=== PATIENT | female | born 1955 | race Caucasian/White ===

== ENCOUNTER 2016-08-11 12:57 | Emergency (ER) | payer MEDICARE ==
[2016-08-11 13:09] VITALS: BP 152/81; PULSE 114; RESP 18; TEMP 98.2
--- NOTE | 2016-08-11 13:30 | ED ---
ENT HPI - General Chief complaint: Dental/Oral Stated complaint: Dental Pain Time Seen by Provider: 08/11/16 13:15 Source: patient, RN notes reviewed, old records reviewed Mode of arrival: ambulatory Limitations: no limitations - History of Present Illness Initial comments: Is a 61-year-old female presenting to the ED chief complaint of dental pain. Patient reports that she is trying to get her teeth pulled and states that she needs to be started on some antibiotics. Patient states that she has pain over tooth 24 and 23, tooth #29 and 14. Patient has very poor dentition and multiple dental caries. Patient denies any fever or chills. She also states that she is a heavy smoker and ran out of her inhaler medication. She states that she ran out of her rescue inhaler as well as her preventable medication. Patient denies any fever or chills, difficulty opening or closing the mouth. She denies any significant coughing is worse than usual. Patient states that she has poor dentition because she was on multiple anxiety medicines which cause her to have a dry mouth for many years.Patient denies any recent fever, chills, shortness of breath, chest pain, back pain, abdominal pain, nausea vomiting, numbness or tingling, dysuria or hematuria, constipation or diarrhea, headaches or visual changes, or any other current symptoms - Related Data Previous Rx's Medication Instructions Recorded Albuterol Sulfate [Ventolin HFA] 2 puff INHALATION Q4H PRN #1 06/29/13 inhaler Budesonide/Formoterol Fumarate 2 puff INHALATION BID #1 inhaler 06/29/13 [Symbicort 160-4.5 Mcg Inhaler] Ciprofloxacin HCl [Cipro] 500 mg PO Q12HR #14 tablet 06/29/13 Fluconazole [Diflucan] 150 mg PO ONCE #1 tab 06/29/13 Hydrocodone/Acetaminophen 1 each PO Q6H PRN 7 Days 06/29/13 [Hydrocodone/Acetaminophen 7.5-325] Nicotine 21Mg/24Hr Patch [Habitrol] 1 each TRANSDERM DAILY #30 patch 06/29/13 methylPREDNISolone [Medrol] 32 mg PO DAILY #7 tablet 06/29/13 Albuterol Inhaler [Ventolin Hfa 1 - 2 puff INHALATION Q6HR PRN #1 08/11/16 Inhaler] inhaler Budesonide/Formoterol Fumarate 2 puff INHALATION BID #1 inhaler 08/11/16 [Symbicort 160-4.5 Mcg Inhaler] HYDROcodone/APAP 7.5-325MG [Renick 1 tab PO Q6HR PRN #10 tab 08/11/16 7.5-325] Penicillin V Potassium [Pen Vee K] 500 mg PO QID #40 tab 08/11/16 Allergies Allergy/AdvReac Type Severity Reaction Status Date / Time codeine Allergy Itching Verified 08/11/16 13:09 erythromycin base Allergy Nausea & Verified 08/11/16 13:09 [Erythromycin Base] Vomiting morphine AdvReac Nausea Verified 08/11/16 13:09 Review of Systems ROS Statement: Those systems with pertinent positive or pertinent negative responses have been documented in the HPI. ROS Other: All systems not noted in ROS Statement are negative. Past Medical History Past Medical History: Asthma, COPD Additional Past Medical History / Comment(s): kidney stones, hep C History of Any Multi-Drug Resistant Organisms: None Reported Past Surgical History: Section, Cholecystectomy Additional Past Surgical History / Comment(s): Gallbladder. x 6. Kidney stone removed. 3 surgries to right arm, hardware in place Additional Past Anesthesia/Blood Transfusion Reaction / Comment(s): Trouble waking up after , did not wake up for 3 days Past Psychological History: Anxiety, Depression Smoking Status: Heavy tobacco smoker Past Alcohol Use History: None Reported Past Drug Use History: None Reported General Exam - General Exam Comments Initial Comments: 61-year-old female. No acute distress. Limitations: no limitations General appearance: alert, in no apparent distress Head exam: Present: atraumatic, normocephalic, normal inspection Eye exam: Present: normal appearance, PERRL, EOMI. Absent: scleral icterus, conjunctival injection, periorbital swelling ENT exam: Present: normal exam, mucous membranes moist Neck exam: Present: normal inspection. Absent: tenderness, meningismus, lymphadenopathy Respiratory exam: Present: normal lung sounds bilaterally, wheezes (Bilateral wheezing. Patient reports that she is a heavy smoker this is chronic.). Absent : respiratory distress, rales, rhonchi, stridor Cardiovascular Exam: Present: regular rate, normal rhythm, normal heart sounds. Absent: systolic murmur, diastolic murmur, rubs, gallop, clicks GI/Abdominal exam: Present: soft, normal bowel sounds. Absent: distended, tenderness, guarding, rebound, rigid Extremities exam: Present: normal inspection, full ROM, normal capillary refill. Absent: tenderness, pedal edema, joint swelling, calf tenderness Back exam: Present: normal inspection Neurological exam: Present: alert, oriented X3, CN II-XII intact Psychiatric exam: Present: normal affect, normal mood Skin exam: Present: warm, dry, intact, normal color. Absent: rash Course Vital Signs 08/11/16 13:05 Temperature 98.2 F Pulse Rate 114 H Respiratory 18 Rate Blood Pressure 152/81 O2 Sat by Pulse 96 Oximetry Medical Decision Making - Medical Decision Making Is a 61-year-old female presenting to the ED chief complaint of dental pain. Patient reports that she is trying to get her teeth pulled and states that she needs to be started on some antibiotics. Patient states that she has pain over tooth 24 and 23, tooth #29 and 14. Patient has very poor dentition and multiple dental caries. Patient denies any fever or chills. She also states that she is a heavy smoker and ran out of her inhaler medication. She states that she ran out of her rescue inhaler as well as her preventable medication. Patient denies any fever or chills, difficulty opening or closing the mouth. She denies any significant coughing is worse than usual. Patient has extremely poor dentition. Evidence of multiple dental caries and missing all of her molars. Patient has fractured tooth #29, multiple caries in between tooth #24 and 23 and fracture tooth #13 oh 14. Patient will be started on Pen-Vee K, given pain medication as well as refill of in her inhalers for her COPD. Discussed with the patient she needs to follow-up with a dentist and primary care 5. Return parameters were discussed. Disposition Clinical Impression: Pain, dental, COPD (chronic obstructive pulmonary disease) Disposition: HOME SELF-CARE Condition: Good Instructions: Toothache (ED), COPD (Chronic Obstructive Pulmonary Disease) (ED) Additional Instructions: Patient advised to follow-up with a primary care provider. Use your inhalers as directed. Also complete antibiotic prescription and use pain medication instructed. Return to the emergency department if any alarming signs or symptoms occur. Prescriptions: Albuterol Inhaler [Ventolin Hfa Inhaler] 1 - 2 puff INHALATION Q6HR PRN #1 inhaler PRN Reason: Shortness Of Breath Budesonide/Formoterol Fumarate [Symbicort 160-4.5 Mcg Inhaler] 2 puff INHALATION BID #1 inhaler HYDROcodone/APAP 7.5-325MG [Renick 7.5-325] 1 tab PO Q6HR PRN #10 tab PRN Reason: Pain Penicillin V Potassium [Pen Vee K] 500 mg PO QID #40 tab Referrals: Nonstaff,Physician [Primary Care Provider] - 1-2 days Dom Godfrey MD [STAFF PHYSICIAN] - 1-2 days Time of Disposition: 13:26
== END 2016-08-11 13:42 | disposition home or self-care (01) ==
LOC: EC 12:57
DX: K08.89 Other specified disorders of teeth and supporting structures (principal); J44.9 Chronic obstructive pulmonary disease, unspecified; F17.200 Nicotine dependence, unspecified, uncomplicated; Z88.5 Allergy status to narcotic agent; Z88.1 Allergy status to other antibiotic agents
CPT/HCPCS: 99283

== ENCOUNTER 2016-10-26 13:10 | Emergency (ER) | payer MEDICARE ==
[2016-10-26] MEDS ORDERED: KETOROLAC 30 MG/ML 1 ML VIAL IVP STA (15:13)
[2016-10-26] MEDS ORDERED: methylPREDNISolone SOD SUCCI 125 MG/2 ML VIAL IV STA (15:13)
[2016-10-26] MEDS ORDERED: ORPHENADRINE 30 MG/ML 2 ML VIAL IVP STA (15:14)
--- NOTE | 2016-10-26 15:28 | ED ---
Back Pain HPI - General Stated Complaint: lower back pain Time Seen by Provider: 10/26/16 14:15 Source: patient, RN notes reviewed - History of Present Illness Initial Comments: This is a 61-year-old female with a history of upper back pain in the past who states she jumped out of a car yesterday to avoid the bee sting and twisted when she got out. She did not fall but she's had low back pain since that time up to 09/23 in severity sharp in nature and radiating to the left upper gluteus. She denies any urinary or fecal incontinence. She denies any fevers chills sweats a loss of function to her upper or lower extremities. She does not have a known history of low back injury or disease. She denies any urinary or fecal incontinence. Patient does state that she did take Motrin and Tylenol without much relief. MD Complaint: back pain, back injury - Related Data Home Medications Medication Instructions Recorded Confirmed Acetaminophen Tab [Tylenol Tab] 1,000 mg PO Q6HR PRN 10/26/16 10/26/16 Albuterol Sulfate [Ventolin HFA] 2 puff INHALATION RT-Q4H PRN 10/26/16 10/26/16 [id number] 2 tab PO Q4HR PRN 10/26/16 10/26/16 [Excedrin] Budesonide/Formoterol Fumarate 2 puff INHALATION RT-BID 10/26/16 10/26/16 [Symbicort 160-4.5 Mcg Inhaler] Ibuprofen [Motrin] 800 mg PO Q6H PRN 10/26/16 10/26/16 Previous Rx's Medication Instructions Recorded Cyclobenzaprine [Flexeril] 10 mg PO TID #14 tab 10/26/16 Hydrocodone/Acetaminophen [[place]berry 1 each PO Q6HR PRN #12 tab 10/26/16 5-325] predniSONE 20 mg PO BID #10 tab 10/26/16 Allergies Allergy/AdvReac Type Severity Reaction Status Date / Time codeine Allergy Itching Verified 10/26/16 14:18 erythromycin base Allergy Nausea & Verified 10/26/16 14:18 [Erythromycin Base] Vomiting morphine AdvReac Nausea Verified 10/26/16 14:18 Review of Systems ROS Statement: Those systems with pertinent positive or pertinent negative responses have been documented in the HPI. ROS Other: All systems not noted in ROS Statement are negative. Past Medical History Past Medical History: Asthma, COPD Additional Past Medical History / Comment(s): kidney stones, hep C History of Any Multi-Drug Resistant Organisms: None Reported Past Surgical History: Section, Cholecystectomy Additional Past Surgical History / Comment(s): Gallbladder. x 6. Kidney stone removed. 3 surgries to right arm, hardware in place Additional Past Anesthesia/Blood Transfusion Reaction / Comment(s): Trouble waking up after , did not wake up for 3 days Past Psychological History: Anxiety, Depression Smoking Status: Heavy tobacco smoker Past Alcohol Use History: None Reported Past Drug Use History: None Reported General Exam - General Exam Comments Initial Comments: This is a well-developed well-nourished awake alert oriented 3 female Limitations: no limitations General appearance: alert, anxious, in distress Head exam: Present: atraumatic, normocephalic, normal inspection Eye exam: Present: normal appearance, PERRL, EOMI. Absent: scleral icterus, conjunctival injection, periorbital swelling ENT exam: Present: normal exam, mucous membranes moist Neck exam: Present: normal inspection. Absent: tenderness, meningismus, lymphadenopathy Respiratory exam: Present: normal lung sounds bilaterally. Absent: respiratory distress, wheezes, rales, rhonchi, stridor Cardiovascular Exam: Present: regular rate, normal rhythm, normal heart sounds. Absent: systolic murmur, diastolic murmur, rubs, gallop, clicks GI/Abdominal exam: Present: soft, normal bowel sounds. Absent: distended, tenderness, guarding, rebound, rigid, bruit, pulsatile mass Extremities exam: Present: normal inspection, full ROM, normal capillary refill. Absent: tenderness, pedal edema, joint swelling, calf tenderness Back exam: Present: normal inspection, tenderness (Tenderness palpation of the left SI joint and over the gluteus muscle on the left over the sciatic outlet. Some mild paraspinous tenderness in the left no right SI joint tenderness. No step-off no crepitation no midline tenderness.) Neurological exam: Present: alert, oriented X3, CN II-XII intact Psychiatric exam: Present: normal affect, normal mood Skin exam: Present: warm, dry, intact, normal color. Absent: rash Medical Decision Making - Medical Decision Making I did discuss findings with the patient patient is feeling somewhat improved she will be discharged on appropriate medication the clinical presentation is consistent with sciatica. - Radiology Data Radiology results: report reviewed (I did review the imaging or some degenerative changes noted no acute findings however.), image reviewed Disposition Clinical Impression: Sciatica of left side, Low back pain Disposition: HOME SELF-CARE Condition: Good Instructions: Sciatica (ED), Lower Back Exercises (ED) Prescriptions: Cyclobenzaprine [Flexeril] 10 mg PO TID #14 tab Hydrocodone/Acetaminophen [Newberry 5-325] 1 each PO Q6HR PRN #12 tab PRN Reason: Pain predniSONE 20 mg PO BID #10 tab Referrals: Tony Schmidt MD [Primary Care Provider] - 1-2 days
--- NOTE | 2016-10-26 15:53 | XR ---
EXAM TYPE: LUMBAR SPINE X RAY SERIES COMPARISON: NONE HISTORY: Back pain TECHNIQUE: 4 views are submitted. FINDINGS: Alignment is anatomic. The pedicles are intact. The transverse processes are intact. Surgical clip s in the right upper quadrant. There is facet arthropathy at L4-5 and L5-S1 with degenerative disc di sease. No compression deformities. Vascular calcifications noted. There is a slight anterolisthesis o f L4 on L5. IMPRESSION: 1. Degenerative disc disease facet arthropathy L4-L5 with minimal anterolisthesis L4 on L5.
[2016-10-26 17:18] VITALS: BP 148/67; PULSE 80; RESP 18; TEMP 98.4
== END 2016-10-26 17:21 | disposition home or self-care (01) ==
LOC: EC 13:10
DX: M54.42 Lumbago with sciatica, left side (principal); J44.9 Chronic obstructive pulmonary disease, unspecified; F17.200 Nicotine dependence, unspecified, uncomplicated; Z79.51 Long term (current) use of inhaled steroids; Z88.1 Allergy status to other antibiotic agents; Z88.5 Allergy status to narcotic agent; X50.1XXA Overexertion from prolonged static or awkward postures, initial encounter; Y93.39 Activity, other involving climbing, rappelling and jumping off
CPT/HCPCS: 72110; 99283; 96374; 96375 ×2; J2360; J2930; J1885

== ENCOUNTER 2016-11-17 14:22 | Emergency (ER) | payer MEDICARE ==
[2016-11-17] MEDS ORDERED: ALBUTEROL NEBULIZED 2.5 MG/3 ML INHALATION STA (14:46)
[2016-11-17] MEDS ORDERED: SODIUM CHLORIDE 0.9% 500 ML IV STA (14:46)
[2016-11-17] MEDS ORDERED: methylPREDNISolone SOD SUCCI 125 MG/2 ML VIAL IV STA (14:46)
[2016-11-17] MEDS ORDERED: IPRATROPIUM-ALBUTEROL 3 ML NEB INHALATION STA (14:46)
--- NOTE | 2016-11-17 14:58 | ED ---
General Adult HPI - General Chief complaint: Recheck/Abnormal Lab/Rx Stated complaint: Congestion Time Seen by Provider: 11/17/16 14:31 Source: patient Mode of arrival: ambulatory Limitations: no limitations - History of Present Illness Initial comments: Patient is a 61-year-old female who presents with a chief complaint of shortness of breath. Patient states she been sick since November 07. The patient has not been evaluated by a physician yet for this. Patient states that she is feeling somewhat better however she is still short of breath. She thinks that it is her asthma. The patient continues to smoke, she lives in a house with other smokers to smoke inside, there also pets inside the house. Patient cannot think of any inciting incident, she does not identify any sick contacts. Patient states the fumes or aggravating, and that her shortness of breath is worse when lying down. There are no alleviating factors, the patient admits that she ran out of her inhalers. Patient denies any chest pain. - Related Data Home Medications Medication Instructions Recorded Confirmed Acetaminophen Tab [Tylenol Tab] 1,000 mg PO Q6HR PRN 10/26/16 11/17/16 Albuterol Sulfate [Ventolin HFA] 2 puff INHALATION RT-Q4H PRN 10/26/16 11/17/16 Budesonide/Formoterol Fumarate 2 puff INHALATION RT-BID 10/26/16 11/17/16 [Symbicort 160-4.5 Mcg Inhaler] Aspirin/Sod Bicarb/Citric Acid 2 tab PO DAILY PRN 11/17/16 11/17/16 [Amy-[place] Original Tab Eff] Previous Rx's Medication Instructions Recorded Albuterol Inhaler [Ventolin Hfa 1 - 2 puff INHALATION Q4HR #1 11/17/16 Inhaler] inhaler Albuterol Nebulized [Ventolin 2.5 mg INHALATION Q4H #20 nebu 11/17/16 Nebulized] Azithromycin 250 mg PO DAILY #6 tab 11/17/16 Ipratropium [place] [Atrovent Hfa] 2 puff INHALATION QID #1 inhaler 11/17/16 predniSONE 50 mg PO DAILY #5 tablet 11/17/16 Allergies Allergy/AdvReac Type Severity Reaction Status Date / Time codeine Allergy Itching Verified 11/17/16 14:27 erythromycin base Allergy Nausea & Verified 11/17/16 14:27 [Erythromycin Base] Vomiting morphine AdvReac Nausea Verified 11/17/16 14:27 Review of Systems ROS Statement: Those systems with pertinent positive or pertinent negative responses have been documented in the HPI. ROS Other: All systems not noted in ROS Statement are negative. Constitutional: Denies: fever, chills Eyes: Denies: vision change ENT: Denies: throat pain Respiratory: Reports: cough, dyspnea Cardiovascular: Reports: orthopnea. Denies: chest pain, dyspnea on exertion Endocrine: Reports: fatigue Gastrointestinal: Denies: abdominal pain, nausea, vomiting Genitourinary: Denies: dysuria Musculoskeletal: Denies: back pain Skin: Denies: rash, lesions Neurological: Denies: headache Past Medical History Past Medical History: Asthma, COPD Additional Past Medical History / Comment(s): kidney stones, hep C History of Any Multi-Drug Resistant Organisms: None Reported Past Surgical History: Section, Cholecystectomy Additional Past Surgical History / Comment(s): Gallbladder. x 6. Kidney stone removed. 3 surgries to right arm, hardware in place Additional Past Anesthesia/Blood Transfusion Reaction / Comment(s): Trouble waking up after , did not wake up for 3 days Past Psychological History: Anxiety, Depression Smoking Status: Current every day smoker Past Alcohol Use History: None Reported Past Drug Use History: None Reported General Exam Limitations: no limitations General appearance: alert, in no apparent distress Head exam: Present: atraumatic, normocephalic Eye exam: Present: normal appearance ENT exam: Present: normal exam Respiratory exam: Present: wheezes, prolonged expiratory Cardiovascular Exam: Present: regular rate, normal rhythm, normal heart sounds GI/Abdominal exam: Present: soft. Absent: distended, tenderness Rectal exam: Present: deferred Extremities exam: Present: normal inspection Back exam: Present: normal inspection Neurological exam: Present: alert, oriented X3, CN II-XII intact, normal gait Psychiatric exam: Present: normal affect, normal mood Skin exam: Present: warm, dry, intact Course Vital Signs 11/17/16 11/17/16 11/17/16 14:25 15:19 15:29 Temperature 97.5 F L Pulse Rate 102 H 102 H 98 Respiratory 20 22 Rate Blood Pressure 187/97 175/61 O2 Sat by Pulse 97 96 Oximetry 11/17/16 11/17/16 15:54 16:13 Temperature Pulse Rate 96 94 Respiratory 18 Rate Blood Pressure 159/75 O2 Sat by Pulse 94 L Oximetry Medical Decision Making - Medical Decision Making Patient is a 61-year-old female with history of asthma and COPD who presents with a chief complaint of shortness of breath. On initial evaluation, the patient is mildly tachycardic, otherwise stable. She will have a basic cardiac workup. Patient was given Solu-Medrol, breathing treatments. At this time, history and physical examination is most consistent with upper respiratory infection versus asthma exacerbation. I discussed triggers the patient and advised that she find a better living situation. EKG performed at 2:53 PM shows sinus tachycardia with a rate of 104 bpm. EKG is otherwise nonspecific. There does not appear to be any ST segment elevations or depressions. The segments appear to be within normal limits. 5:00 PM Lab evaluation this patient is unremarkable. Chest x-ray shows evidence of bronchitis. Patient was reexamined after breathing treatments, her vital signs are improved, and she states that she feels better. Reexamination of the lungs shows improved wheezing, air entry, and air exit. At this time, I discussed discharge with the patient, she is agreeable to this care plan. I'll prescribe her albuterol inhaler, Atrovent, steroids, and a Z-Ankit. It would be ideal for this patient to have a nebulizer machine at home, I will write a prescription for a nebulizer, and provide the patient with the phone number for social work to facilitate. At this time, all questions are answered as best my ability, the patient is instructed to follow up with primary care, or to return to the emergency department if her symptoms worsen or change. - Lab Data Result diagrams: 11/17/16 15:08 11/17/16 15:08 Lab Results 11/17/16 11/17/16 11/17/16 Range/Units 15:08 15:08 15:08 WBC 8.9 (3.8-10.6) k/uL RBC 4.34 (3.80-5.40) m/uL Hgb 14.3 (11.4-16.0) gm/dL Hct 42.9 (34.0-46.0) % MCV 98.9 (80.0-100.0) fL MCH 32.9 (25.0-35.0) pg MCHC 33.2 (31.0-37.0) g/dL RDW 13.6 (11.5-15.5) % Plt Count 356 (150-450) k/uL Neutrophils % 45 % Lymphocytes % 42 % Monocytes % 9 % Eosinophils % 2 % Basophils % 1 % Neutrophils # 4.0 (1.3-7.7) k/uL Lymphocytes # 3.7 (1.0-4.8) k/uL Monocytes # 0.8 (0-1.0) k/uL Eosinophils # 0.2 (0-0.7) k/uL Basophils # 0.1 (0-0.2) k/uL PT (9.0-12.0) sec INR (<1.2) APTT (22.0-30.0) sec Sodium 141 (137-145) mmol/L Potassium 4.5 (3.5-5.1) mmol/L Chloride 104 (98-107) mmol/L Carbon Dioxide 26 (22-30) mmol/L Anion Gap 11 mmol/L BUN 25 H (7-17) mg/dL Creatinine 0.72 (0.52-1.04) mg/dL Est GFR (MDRD) Af Amer >60 (>60 ml/min/1.73 sqM) Est GFR (MDRD) Non-Af >60 (>60 ml/min/1.73 sqM) Glucose 119 H (74-99) mg/dL Calcium 9.9 (8.4-10.2) mg/dL Magnesium 2.1 (1.6-2.3) mg/dL Total Creatine Kinase 86 (30-135) U/L CK-MB (CK-2) 0.8 (0.0-2.4) ng/mL CK-MB (CK-2) Rel Index 0.9 Troponin I <0.012 (0.000-0.034) ng/mL NT-Pro-B Natriuret Pep pg/mL 11/17/16 11/17/16 Range/Units 15:08 15:08 WBC (3.8-10.6) k/uL RBC (3.80-5.40) m/uL Hgb (11.4-16.0) gm/dL Hct (34.0-46.0) % MCV (80.0-100.0) fL MCH (25.0-35.0) pg MCHC (31.0-37.0) g/dL RDW (11.5-15.5) % Plt Count (150-450) k/uL Neutrophils % % Lymphocytes % % Monocytes % % Eosinophils % % Basophils % % Neutrophils # (1.3-7.7) k/uL Lymphocytes # (1.0-4.8) k/uL Monocytes # (0-1.0) k/uL Eosinophils # (0-0.7) k/uL Basophils # (0-0.2) k/uL PT 10.1 (9.0-12.0) sec INR 1.0 (<1.2) APTT 21.5 L (22.0-30.0) sec Sodium (137-145) mmol/L Potassium (3.5-5.1) mmol/L Chloride (98-107) mmol/L Carbon Dioxide (22-30) mmol/L Anion Gap mmol/L BUN (7-17) mg/dL Creatinine (0.52-1.04) mg/dL Est GFR (MDRD) Af Amer (>60 ml/min/1.73 sqM) Est GFR (MDRD) Non-Af (>60 ml/min/1.73 sqM) Glucose (74-99) mg/dL Calcium (8.4-10.2) mg/dL Magnesium (1.6-2.3) mg/dL Total Creatine Kinase (30-135) U/L CK-MB (CK-2) (0.0-2.4) ng/mL CK-MB (CK-2) Rel Index Troponin I (0.000-0.034) ng/mL NT-Pro-B Natriuret Pep 50 pg/mL Disposition Clinical Impression: Asthma exacerbation, Bronchitis, Encounter for smoking cessation counseling, Encounter for removal of sutures, Shortness of breath Disposition: HOME SELF-CARE Condition: Good Instructions: Acute Bronchitis (ED), COPD (Chronic Obstructive Pulmonary Disease) (ED), How to Use a Nebulizer (ED) Referrals: Nonstaff,Physician [REFERRING] - 1-2 days
[2016-11-17 15:35] LABS: Anion Gap 11 mmol/L; Blood Urea Nitrogen 25 mg/dL (7-17); Calcium 9.9 mg/dL (8.4-10.2); Carbon Dioxide 26 mmol/L (22-30); Chloride 104 mmol/L (98-107); Glucose 119 mg/dL (74-99); Magnesium 2.1 mg/dL (1.6-2.3); Non-African American GFR(MDRD) >60 (>60 ml/min/1.73 sqM); Potassium 4.5 mmol/L (3.5-5.1); Sodium 141 mmol/L (137-145)
[2016-11-17 15:41] LABS: Partial Thromboplastin Time 21.5 sec (22.0-30.0); Prothrombin Time 10.1 sec (9.0-12.0)
[2016-11-17 15:47] LABS: Basophils # (A) 0.1 k/uL (0-0.2); Basophils % (A) 1 %; CH 33.1; CHCM 33.7; Creatine Kinase 86 U/L (30-135); Eosinophils # (A) 0.2 k/uL (0-0.7); Eosinophils % (A) 2 %; HCT 42.9 % (34.0-46.0); HDW 2.49; HGB 14.3 gm/dL (11.4-16.0); Luc # (Auto) 0.17; Luc % (Auto) 2; Lymphocytes # (A) 3.7 k/uL (1.0-4.8); Lymphocytes % (A) 42 %; MCH 32.9 pg (25.0-35.0); MCHC 33.2 g/dL (31.0-37.0); MCV 98.9 fL (80.0-100.0); Mean Platelet Volume 8.5; Monocytes # (A) 0.8 k/uL (0-1.0); Monocytes % (A) 9 %; Neutrophils % (A) 45 %; RBC 4.34 m/uL (3.80-5.40); RDW 13.6 % (11.5-15.5); WBC 8.9 k/uL (3.8-10.6); WBC (Perox) 9.09
[2016-11-17 16:01] LABS: Creatine Kinase MB 0.8 ng/mL (0.0-2.4); Troponin I <0.012 ng/mL (0.000-0.034)
--- NOTE | 2016-11-17 16:21 | XR ---
EXAMINATION TYPE: XR chest 2V DATE OF EXAM: 11/17/2016 COMPARISON: 06/27/2013 HISTORY: 61-year-old female difficulty breathing TECHNIQUE: PA and lateral views FINDINGS: The cardiomediastinal silhouette, aorta, and pulmonary vasculature are within normal limits. Mild per ibronchial cuffing. Otherwise, lungs and pleural spaces are clear. IMPRESSION: Some peribronchial cuffing could represent bronchitis or chronic asthma. Otherwise, no acute process seen.
[2016-11-17 17:49] VITALS: BP 169/81; PULSE 96; RESP 18; TEMP 98
== END 2016-11-17 17:49 | disposition home or self-care (01) ==
LOC: EC 14:22
DX: J45.901 Unspecified asthma with (acute) exacerbation (principal); F17.200 Nicotine dependence, unspecified, uncomplicated; Z48.02 Encounter for removal of sutures; Z79.51 Long term (current) use of inhaled steroids; Z88.1 Allergy status to other antibiotic agents; Z88.5 Allergy status to narcotic agent
CPT/HCPCS: 99284 ×2; 96374 ×2; 96361 ×3; 36415; 94640; 93005; 83880; 80048; 82550; 82553; 83735; 84484; 85025; 85610; 85730; 71020; J2930

== ENCOUNTER 2017-07-25 18:35 | Emergency (ER) | payer MEDICARE, OTHER ==
[2017-07-25] MEDS ORDERED: methylPREDNISolone SOD SUCCI 125 MG/2 ML VIAL IM STA (19:02)
[2017-07-25] MEDS ORDERED: IPRATROPIUM-ALBUTEROL 3 ML NEB INHALATION STA (19:02)
--- NOTE | 2017-07-25 19:05 | ED ---
General Adult HPI - General Chief complaint: Upper Respiratory Infection Stated complaint: Diff Breathing, Tooth Ache Time Seen by Provider: 07/25/17 18:59 Source: patient, RN notes reviewed Mode of arrival: ambulatory Limitations: no limitations - History of Present Illness Initial comments: Patient 62-year-old female presents to the emergency room today with multiple points per patient does admit to a history of COPD and has had some cough congestion over the last few days and if any increasing. She states she is currently out of her inhaler. She states she had a prescription for nebulizer but lost it. Patient states that she's also had some dental pain she's had a fracture to the tooth #8 that has begun to bother her more recently. She states sternal fracture. She states she has been following up with dentist. Denies any drainage or unusual taste. Patient denies any recent fever, chills, chest pain, back pain, abdominal pain, nausea or vomiting, numbness or tingling , dysuria or hematuria, constipation or diarrhea, headaches or visual changes, or any other complaints. - Related Data Home Medications Medication Instructions Recorded Confirmed Acetaminophen Tab [Tylenol Tab] 1,000 mg PO Q6HR PRN 07/25/17 07/25/17 Albuterol Sulfate [Proair Hfa] 2 puff INHALATION RT-Q6H PRN 07/25/17 07/25/17 Previous Rx's Medication Instructions Recorded Albuterol Inhaler [Ventolin Hfa 1 - 2 puff INHALATION Q4-6H PRN #1 07/25/17 Inhaler] inhaler Albuterol Nebulized [Ventolin 2.5 mg INHALATION Q4H PRN 10 Days 07/25/17 Nebulized] nebu predniSONE 60 mg PO DAILY 5 Days tab 07/25/17 Allergies Allergy/AdvReac Type Severity Reaction Status Date / Time codeine Allergy Itching Verified 07/25/17 19:17 erythromycin base Allergy Nausea & Verified 07/25/17 19:17 [Erythromycin Base] Vomiting morphine AdvReac Nausea Verified 07/25/17 19:17 Review of Systems ROS Statement: Those systems with pertinent positive or pertinent negative responses have been documented in the HPI. ROS Other: All systems not noted in ROS Statement are negative. Past Medical History Past Medical History: Asthma, COPD Additional Past Medical History / Comment(s): kidney stones, hep C History of Any Multi-Drug Resistant Organisms: None Reported Past Surgical History: Section, Cholecystectomy, Orthopedic Surgery Additional Past Surgical History / Comment(s): Gallbladder. x 6. Kidney stone removed. 3 surgries to right arm, hardware in place Additional Past Anesthesia/Blood Transfusion Reaction / Comment(s): Trouble waking up after , did not wake up for 3 days Past Psychological History: Anxiety, Depression Smoking Status: Current every day smoker Past Alcohol Use History: None Reported Past Drug Use History: None Reported General Exam - General Exam Comments Initial Comments: General: The patient is awake and alert, in no distress, and does not appear acutely ill. Eye: Pupils are equal, round and reactive to light, extra-ocular movements are intact. No nystagmus. There is normal conjunctiva bilaterally. No signs of icterus. Ears, nose, mouth and throat: There are moist mucous membranes and no oral lesions. Neck: The neck is supple, there is no tenderness or JVD. Cardiovascular: There is a regular rate and rhythm. No murmur, rub or gallop is appreciated. Respiratory: Decreased lung sounds bilaterally with expiratory wheeze. respirations are non-labored, breath sounds are equal. No stridor, rales, or rhonchi. Musculoskeletal: Normal ROM, no tenderness. Strength 5/5. Sensation intact. Pulses equal bilaterally 2+. Neurological: A&O x 3. CN II-XII intact, There are no obvious motor or sensory deficits. Coordination appears grossly intact. Speech is normal. Skin: Skin is warm and dry and no rashes or lesions are noted. Psychiatric: Cooperative, appropriate mood & affect, normal judgment. Limitations: no limitations Course Vital Signs 07/25/17 07/25/17 07/25/17 18:42 19:25 19:35 Temperature 98.2 F Pulse Rate 100 102 H 96 Respiratory 18 Rate Blood Pressure 163/83 O2 Sat by Pulse 95 Oximetry Medical Decision Making - Medical Decision Making Patient rechecked at this time shows no signs of distress. She does much feeling much better after breathing treatment. Pulse ox 97% on room air. Lung sounds are clear at this time. Patient will be discharged home on steroids, given a prescription for albuterol inhaler that she is currently out of. Patient will also be written a prescription for nebulizer treatments. Advised to follow-up family doctor return if any symptoms increase or worsen. Disposition Clinical Impression: Asthma exacerbation, Pain, dental Disposition: HOME SELF-CARE Condition: Good Instructions: Bronchospasm (ED) Additional Instructions: Please use medication as discussed. Please follow-up dentist for dental pain over the next week. Please follow-up with family doctor in the next 2 days of symptoms have not improved. Please return to emergency room if the symptoms increase or worsen or for any other concerns. Prescriptions: Albuterol Inhaler [Ventolin Hfa Inhaler] 1 - 2 puff INHALATION Q4-6H PRN #1 inhaler PRN Reason: Cough Albuterol Nebulized [Ventolin Nebulized] 2.5 mg INHALATION Q4H PRN 10 Days nebu PRN Reason: Cough predniSONE 60 mg PO DAILY 5 Days tab Is patient prescribed a controlled substance at d/c from ED?: No Referrals: None,Stated [Primary Care Provider] - 1-2 days Antonio Stuart DO [STAFF PHYSICIAN] - 1-2 days Sandra Barker MD [REFERRING] - 1-2 days Time of Disposition: 19:43
--- NOTE | 2017-07-25 19:24 | XR ---
EXAMINATION TYPE: XR chest 2V DATE OF EXAM: 07/25/2017 COMPARISON: 11/17/2016 HISTORY: Cough TECHNIQUE: Frontal and lateral views of the chest are obtained. FINDINGS: Heart and mediastinum are normal. Lungs are clear. Diaphragm is normal. Bony thorax appear s normal. IMPRESSION: Normal chest. No change.
[2017-07-25 19:49] VITALS: BP 133/77; PULSE 87; TEMP 97.9
[2017-07-25 19:50] VITALS: RESP 24
== END 2017-07-25 19:50 | disposition home or self-care (01) ==
LOC: EC 18:35
DX: J44.9 Chronic obstructive pulmonary disease, unspecified (principal); J45.901 Unspecified asthma with (acute) exacerbation; S02.5XXA Fracture of tooth (traumatic), initial encounter for closed fracture; F17.200 Nicotine dependence, unspecified, uncomplicated; Z88.1 Allergy status to other antibiotic agents; Z88.5 Allergy status to narcotic agent; X58.XXXA Exposure to other specified factors, initial encounter
CPT/HCPCS: 94640; 71046; 99283; 96372; J2930

== ENCOUNTER → 2017-12-02 | Outpatient (CLI) | payer MEDICARE ==
[2017-12-02 10:51] LABS: Appearance,Urine Clear (Clear); Bilirubin,Urine Negative (Negative); Blood,Urine Small (Negative); Color,Urine Colorless; Glucose,Urine (UA) Negative (Negative); Ketones,Urine Negative (Negative); Leukocyte Esterase,Urine Negative (Negative); Mucus,Urine Rare /hpf; Nitrite,Urine Negative (Negative); Protein,Urine Negative (Negative); RBC,Urine 1 /hpf (0-5); Specific Gravity,Urine 1.005 (1.001-1.035); Urobilinogen,Urine <2.0 mg/dL (<2.0)
[2017-12-02 10:57] LABS: Basophils % (A) 0 %; Eosinophils # (A) 0.3 k/uL (0-0.7); Eosinophils % (A) 4 %; HCT 42.2 % (34.0-46.0); HGB 13.6 gm/dL (11.4-16.0); Lymphocytes # (A) 2.9 k/uL (1.0-4.8); Lymphocytes % (A) 47 %; MCH 31.3 pg (25.0-35.0); MCHC 32.1 g/dL (31.0-37.0); MCV 97.4 fL (80.0-100.0); Mean Platelet Volume 6.6; Monocytes # (A) 0.5 k/uL (0-1.0); Monocytes % (A) 8 %; Neutrophils # (A) 2.3 k/uL (1.3-7.7); Neutrophils % (A) 38 %; Platelet Count 292 k/uL (150-450); RBC 4.33 m/uL (3.80-5.40); RDW 13.2 % (11.5-15.5); WBC 6.1 k/uL (3.8-10.6)
[2017-12-02 11:00] LABS: ALT 39 U/L (9-52); AST 23 U/L (14-36); Albumin 4.3 g/dL (3.5-5.0); Alkaline Phosphatase 69 U/L (38-126); Anion Gap 7 mmol/L; Blood Urea Nitrogen 18 mg/dL (7-17); Calcium 9.9 mg/dL (8.4-10.2); Carbon Dioxide 28 mmol/L (22-30); Chloride 106 mmol/L (98-107); Glucose 103 mg/dL (74-99); HDL Cholesterol 43 mg/dL (40-60); Potassium 5.4 mmol/L (3.5-5.1); Sodium 141 mmol/L (137-145); Total Bilirubin 0.3 mg/dL (0.2-1.3); Total Protein 7.3 g/dL (6.3-8.2)
[2017-12-02 11:08] LABS: Cholesterol 333 mg/dL (<200)
[2017-12-02 11:09] LABS: Triglycerides 637 mg/dL (<150)
[2017-12-02 11:15] LABS: T4, Free (Free Thyroxine) 0.77 ng/dL (0.78-2.19)
[2017-12-02 19:14] LABS: Hemoglobin A1C 5.8 % (4.0-6.0)
== END ==
LOC: LABWHC1 09:54
PROVIDERS: ATTEND Family Medicine
DX: R03.0 Elevated blood-pressure reading, without diagnosis of hypertension (principal)
CPT/HCPCS: 36415; 80053; 80061; 81001; 83036; 84439; 84443; 85025

== ENCOUNTER 2017-12-26 17:30 | Emergency (ER) | payer MEDICARE ==
[2017-12-26 17:47] VITALS: RESP 18
[2017-12-26] MEDS ORDERED: traMADol 50 MG STARTER PACK 3 TAB BTL PO STA (18:05)
[2017-12-26] MEDS ORDERED: HYDROcodone/APAP 7.5-325MG 1 EACH TAB PO ONE (18:05)
[2017-12-26] MEDS ORDERED: PENICILLIN VK 500MG STARTER 4 TAB BTL PO STA (18:05)
--- NOTE | 2017-12-26 18:07 | ED ---
ENT HPI - General Chief complaint: Dental/Oral Stated complaint: dental pain Time Seen by Provider: 12/26/17 18:01 Source: patient, RN notes reviewed Mode of arrival: ambulatory Limitations: no limitations - History of Present Illness Initial comments: 62-year-old female sent emergency Department chief complaint of lower dental pain. Patient states pain started last couple days. She has very poor dentition. Patient states she has been getting tooth pulled one by one as she gets enough money. Patient states that she has multiple dental caries and dental fractures. Patient states that she's concerned about possible infection. Patient has been taking ibuprofen for the pain which is minimally house. Denies any trismus, facial swelling, fever, chills, neck pain, neck stiffness. - Related Data Home Medications Medication Instructions Recorded Confirmed Albuterol Sulfate [Proair Hfa] 2 puff INHALATION RT-Q6H PRN 07/25/17 07/25/17 Ibuprofen [Motrin] 800 mg PO Q8H PRN 12/26/17 12/26/17 Previous Rx's Medication Instructions Recorded Penicillin V Potassium [Pen Vee K] 500 mg PO QID #40 tablet 12/26/17 Allergies Allergy/AdvReac Type Severity Reaction Status Date / Time codeine Allergy Itching Verified 12/26/17 18:06 erythromycin base Allergy Nausea & Verified 12/26/17 18:06 [Erythromycin Base] Vomiting morphine AdvReac Nausea Verified 12/26/17 18:06 Review of Systems ROS Statement: Those systems with pertinent positive or pertinent negative responses have been documented in the HPI. ROS Other: All systems not noted in ROS Statement are negative. Past Medical History Past Medical History: Asthma, COPD Additional Past Medical History / Comment(s): kidney stones, hep C History of Any Multi-Drug Resistant Organisms: None Reported Past Surgical History: Section, Cholecystectomy, Orthopedic Surgery Additional Past Surgical History / Comment(s): Gallbladder. x 6. Kidney stone removed. 3 surgries to right arm, hardware in place Additional Past Anesthesia/Blood Transfusion Reaction / Comment(s): Trouble waking up after , did not wake up for 3 days Past Psychological History: Anxiety, Depression Smoking Status: Current every day smoker Past Alcohol Use History: None Reported Past Drug Use History: None Reported General Exam Limitations: no limitations General appearance: alert, in no apparent distress Head exam: Present: atraumatic, normocephalic, normal inspection Eye exam: Present: normal appearance, PERRL, EOMI. Absent: scleral icterus, conjunctival injection, periorbital swelling ENT exam: Present: mucous membranes moist. Absent: normal oropharynx ( Edentulous, multiple dental caries no dental abscess noted, no trismus) Neck exam: Present: normal inspection, full ROM. Absent: tenderness, meningismus, lymphadenopathy Respiratory exam: Present: normal lung sounds bilaterally. Absent: respiratory distress, wheezes, rales, rhonchi, stridor Cardiovascular Exam: Present: regular rate, normal rhythm, normal heart sounds. Absent: systolic murmur, diastolic murmur, rubs, gallop, clicks Course Vital Signs 12/26/17 17:45 Temperature 98.4 F Pulse Rate 106 H Respiratory 18 Rate Blood Pressure 173/93 O2 Sat by Pulse 97 Oximetry Medical Decision Making - Medical Decision Making Patient presented for dental pain. Patient has dental caries, dental fracture. Patient was placed on penicillin 500 mg 4 times a day and will follow-up with dental clinic. Patient has no evidence of abscess no drainable abscess. Return parameters were discussed. Disposition Clinical Impression: Fracture of tooth, Toothache Disposition: HOME SELF-CARE Condition: Stable Instructions: Toothache (ED) Additional Instructions: Please return to the Emergency Department if symptoms worsen or any other concerns. Prescriptions: Penicillin V Potassium [Pen Vee K] 500 mg PO QID #40 tablet Is patient prescribed a controlled substance at d/c from ED?: No Referrals: Gagan Chahal DO [Primary Care Provider] - 1-2 days Time of Disposition: 18:07
[2017-12-26 18:28] VITALS: BP 169/83; PULSE 99; TEMP 98.1
== END 2017-12-26 18:27 | disposition home or self-care (01) ==
LOC: EC 17:30
DX: S02.5XXA Fracture of tooth (traumatic), initial encounter for closed fracture (principal); F17.200 Nicotine dependence, unspecified, uncomplicated; Z86.19 Personal history of other infectious and parasitic diseases; Z88.1 Allergy status to other antibiotic agents; Z88.5 Allergy status to narcotic agent
CPT/HCPCS: 99283

== ENCOUNTER → 2018-01-19 | Outpatient (CLI) | payer MEDICARE ==
--- NOTE | 2018-01-19 15:18 | MR ---
EXAMINATION TYPE: MR cervical spine wo con DATE OF EXAM: 01/19/2018 COMPARISON: None HISTORY: Neck pain TECHNIQUE: Multiplanar, multisequence images of the cervical spine were acquired. FINDINGS: Vertebral body heights of the cervical spine are maintained. There is a slight retrolisthes is of C5 with respect to C6. Degenerative disc disease is seen throughout the cervical spine with mul tilevel disc desiccation. There is alteration of the spinal cord signal at the C5-C6 intervertebral d isc space and at the C6 vertebral level. Scant mucosal thickening is seen within the sphenoid sinus a s visualized. C2-C3: There is a small broad-based disc bulge without spinal canal stenosis nor neural foraminal emy rowing. C3-C4: There is a broad-based disc bulge and disc desiccation with mild uncovertebral hypertrophy res ulting in minimal bilateral neural foraminal narrowing. No spinal canal stenosis. C4-C5: There is a broad-based disc bulge and small central disc osteophyte complex with uncovertebral hypertrophy creating mild spinal canal stenosis and mild bilateral neural foraminal narrowing. C5-C6: There is a central disc herniation superimposed upon a broad-based disc bulge as well as facet arthropathy and uncovertebral hypertrophy creating mild to moderate spinal canal stenosis and mild l eft neural foraminal narrowing as well as moderate right neural foraminal narrowing. At this level an d inferior to this there is alteration in the spinal cord signal with volume loss indicative of myelo malacia. C6-C7: There is a broad-based disc bulge and uncovertebral hypertrophy with minimal resultant left ne ural foraminal narrowing. No spinal canal stenosis or right neural foraminal narrowing. C7-T1: Disc desiccation is seen however there is no spinal canal stenosis, focal disc herniation or n eural foraminal narrowing. IMPRESSION: 1. Central disc herniation and degenerative disc disease at C5-C6 creating mild to moderate spinal ca nal stenosis and focal spinal cord myelomalacia. Additionally at this level there is resultant modera te right and mild left neural foraminal narrowing 2. Multilevel moderate degenerative disc disease of the cervical spine as described above. No additio nal focal disc herniation. 3. Slight retrolisthesis of C5 on C6, likely on a degenerative basis. 4. Scant mucosal thickening partially visualized within the sphenoid sinus.
== END | disposition home or self-care (01) ==
LOC: RADMRIMAIN 13:30
PROVIDERS: ATTEND Physical Medicine & Rehabilitation
DX: M48.02 Spinal stenosis, cervical region (principal); M99.71 Connective tissue and disc stenosis of intervertebral foramina of cervical region; M50.21 Other cervical disc displacement, high cervical region; M50.322 Other cervical disc degeneration at C5-C6 level; M43.12 Spondylolisthesis, cervical region; G95.89 Other specified diseases of spinal cord
CPT/HCPCS: 72141

== ENCOUNTER → 2018-03-10 | Outpatient (CLI) | payer MEDICARE ==
[2018-03-10 09:54] LABS: HCT 41.3 % (34.0-46.0); HGB 13.5 gm/dL (11.4-16.0); MCH 31.7 pg (25.0-35.0); MCHC 32.7 g/dL (31.0-37.0); Mean Platelet Volume 7.2; Platelet Count 293 k/uL (150-450); RBC 4.26 m/uL (3.80-5.40); RDW 13.1 % (11.5-15.5); WBC 6.4 k/uL (3.8-10.6)
[2018-03-10 13:43] LABS: Ionized Calcium 5.6 mg/dL (4.5-5.3)
[2018-03-10 16:44] LABS: Parathyroid Hormone Intact 20.3 pg/mL (14.0-72.0)
[2018-03-10 16:51] LABS: Hepatitis B Core IgM Non-Reactive (Non-Reactive); Hepatitis B Surface AB- Quant 3.5 mIU/mL
[2018-03-10 16:53] LABS: Anion Gap 6.8 mmol/L (4.00-12.00); Carbon Dioxide 27.2 mmol/L (21.6-31.8); LDL Cholesterol,Calculated 121.6 mg/dL (0.0-131.0); Potassium 4.3 mmol/L (3.5-5.5); VLDL Calculation 36.4 mg/dL (5.00-40.00)
[2018-03-10 17:00] LABS: T4, Free (Free Thyroxine) 1.1 ng/dL (0.80-1.80)
[2018-03-10 17:14] LABS: Thyroid Peroxidase Antibodies <28.0 U/mL (0.0-60.0)
== END ==
LOC: LABWHC1 08:44
PROVIDERS: ATTEND Family Medicine
DX: I10 Essential (primary) hypertension (principal); E78.5 Hyperlipidemia, unspecified; E83.52 Hypercalcemia; E03.9 Hypothyroidism, unspecified; Z20.5 Contact with and (suspected) exposure to viral hepatitis
CPT/HCPCS: 36415; 80048; 80061; 82306; 82330; 82550; 83970; 84439; 84443; 84450; 84460; 85027; 86376; 86705; 86706; 86800; 87340

== ENCOUNTER → 2018-04-04 | Outpatient (CLI) | payer MEDICARE ==
[2018-04-04 17:49] LABS: Basophils % (A) 1 %; Eosinophils # (A) 0.3 k/uL (0-0.7); Eosinophils % (A) 4 %; HCT 39.5 % (34.0-46.0); HGB 12.5 gm/dL (11.4-16.0); Lymphocytes # (A) 3.7 k/uL (1.0-4.8); Lymphocytes % (A) 50 %; MCH 31.1 pg (25.0-35.0); MCHC 31.8 g/dL (31.0-37.0); MCV 97.7 fL (80.0-100.0); Monocytes # (A) 0.4 k/uL (0-1.0); Monocytes % (A) 5 %; Neutrophils # (A) 2.8 k/uL (1.3-7.7); Neutrophils % (A) 38 %; Platelet Count 345 k/uL (150-450); RBC 4.04 m/uL (3.80-5.40); RDW 13.1 % (11.5-15.5); WBC 7.3 k/uL (3.8-10.6)
[2018-04-04 17:53] LABS: Appearance,Urine Clear (Clear); Bilirubin,Urine Negative (Negative); Blood,Urine Negative (Negative); Color,Urine Yellow; Glucose,Urine (UA) Negative (Negative); Ketones,Urine Negative (Negative); Leukocyte Esterase,Urine Small (Negative); Mucus,Urine Rare /hpf; Nitrite,Urine Negative (Negative); PH, Urine 6.5 (5.0-8.0); Protein,Urine Negative (Negative); RBC,Urine 2 /hpf (0-5); Specific Gravity,Urine 1.013 (1.001-1.035); Squamous Epithelial Cell,Urine <1 /hpf (0-4); Urobilinogen,Urine <2.0 mg/dL (<2.0)
[2018-04-04 17:57] LABS: Partial Thromboplastin Time 24.5 sec (22.0-30.0); Prothrombin Time 10.3 sec (9.0-12.0)
[2018-04-04 18:02] LABS: ALT 48 U/L (9-52); AST 25 U/L (14-36); Albumin 4.3 g/dL (3.5-5.0); Alkaline Phosphatase 54 U/L (38-126); Anion Gap 7 mmol/L; Blood Urea Nitrogen 20 mg/dL (7-17); Calcium 10.2 mg/dL (8.4-10.2); Carbon Dioxide 30 mmol/L (22-30); Chloride 104 mmol/L (98-107); Glucose 135 mg/dL (74-99); Potassium 4.6 mmol/L (3.5-5.1); Sodium 141 mmol/L (137-145); Total Bilirubin 0.2 mg/dL (0.2-1.3); Total Protein 6.9 g/dL (6.3-8.2)
== END | disposition home or self-care (01) ==
LOC: LABPAT 16:55
PROVIDERS: ATTEND Nurse Practitioner Family
DX: Z01.812 Encounter for preprocedural laboratory examination (principal); E83.52 Hypercalcemia
CPT/HCPCS: 80053; 81001; 85025; 85610; 85730; 87086

== ENCOUNTER 2018-04-22 16:47 | Emergency (ER) | payer MEDICARE ==
[2018-04-22] MEDS ORDERED: SODIUM CHLORIDE 0.9% 1,000 ML IV STA (17:30)
[2018-04-22] MEDS ORDERED: KETOROLAC 30 MG/ML 1 ML VIAL IVP STA (17:30)
[2018-04-22 17:59] LABS: Basophils % (A) 0 %; Eosinophils # (A) 0.3 k/uL (0-0.7); Eosinophils % (A) 4 %; HCT 41.5 % (34.0-46.0); HGB 13.6 gm/dL (11.4-16.0); Lymphocytes # (A) 2.9 k/uL (1.0-4.8); Lymphocytes % (A) 48 %; MCH 31.1 pg (25.0-35.0); MCHC 32.7 g/dL (31.0-37.0); Mean Platelet Volume 6.7; Monocytes # (A) 0.5 k/uL (0-1.0); Monocytes % (A) 7 %; Neutrophils # (A) 2.3 k/uL (1.3-7.7); Neutrophils % (A) 37 %; Platelet Count 312 k/uL (150-450); RBC 4.37 m/uL (3.80-5.40); RDW 12.7 % (11.5-15.5); WBC 6.1 k/uL (3.8-10.6)
[2018-04-22 18:04] LABS: Amorphous Sediment,Urine Occasional /hpf; Appearance,Urine Cloudy (Clear); Bacteria,Urine Rare /hpf; Bilirubin,Urine Negative (Negative); Blood,Urine Small (Negative); Color,Urine Yellow; Glucose,Urine (UA) Negative (Negative); Hyaline Casts,Urine 1 /lpf (0-2); Ketones,Urine Negative (Negative); Leukocyte Esterase,Urine Trace (Negative); Mucus,Urine Rare /hpf; Nitrite,Urine Negative (Negative); PH, Urine 6.5 (5.0-8.0); Protein,Urine Negative (Negative); RBC,Urine 26 /hpf (0-5); Specific Gravity,Urine 1.013 (1.001-1.035); Squamous Epithelial Cell,Urine <1 /hpf (0-4); Urobilinogen,Urine <2.0 mg/dL (<2.0); WBC,Urine 4 /hpf (0-5)
[2018-04-22 18:10] LABS: ALT 33 U/L (9-52); AST 22 U/L (14-36); Albumin 4.5 g/dL (3.5-5.0); Alkaline Phosphatase 60 U/L (38-126); Anion Gap 7 mmol/L; Blood Urea Nitrogen 24 mg/dL (7-17); Calcium 10.6 mg/dL (8.4-10.2); Carbon Dioxide 31 mmol/L (22-30); Chloride 105 mmol/L (98-107); Glucose 126 mg/dL (74-99); Potassium 4.3 mmol/L (3.5-5.1); Sodium 143 mmol/L (137-145); Total Bilirubin 0.3 mg/dL (0.2-1.3); Total Protein 7.5 g/dL (6.3-8.2)
--- NOTE | 2018-04-22 18:20 | ED ---
Abdominal Pain HPI - General Chief Complaint: Abdominal Pain Stated Complaint: Abd Pain Time Seen by Provider: 04/22/18 17:10 Source: patient Mode of arrival: ambulatory Limitations: no limitations - History of Present Illness Initial Comments: Patient is a 63-year-old female presenting for abdominal pain. The patient states that she has been having pain in the middle lower portion of her abdomen for last 4 days. It is also worsening and feels a constant ache. She feels that she has a urinary tract infection as she has had increased frequency of urination but no dysuria. She denies any nausea/vomiting/diarrhea or fevers/chills. - Related Data Home Medications Medication Instructions Recorded Confirmed DULoxetine HCL [Cymbalta] 20 mg PO DAILY 04/03/18 Fenofibrate Nanocrystallized 145 mg PO DAILY 04/03/18 [Fenofibrate] Stetson-3 Fatty Acids/Fish Oil [Fish 1 each PO DAILY 04/03/18 Oil 1,000 mg Softgel] Pregabalin [Lyrica] 50 mg PO BID 04/03/18 amLODIPine BESYLATE 5 mg PO DAILY 04/03/18 buPROPion HCL [Zyban] 150 mg PO BID 04/03/18 traMADol HCL [Ultram] 50 mg PO Q6HR PRN 04/03/18 Previous Rx's Medication Instructions Recorded Hydrocodone/Acetaminophen [[place] 1 tab PO Q6HR PRN #12 tab 04/22/18 7.5-325] Ibuprofen [Motrin] 600 mg PO Q6HR PRN #20 tab 04/22/18 Allergies Allergy/AdvReac Type Severity Reaction Status Date / Time codeine Allergy Itching Verified 04/22/18 17:01 erythromycin base Allergy Nausea & Verified 04/22/18 17:01 [Erythromycin Base] Vomiting morphine AdvReac Nausea Verified 04/22/18 17:01 Review of Systems ROS Statement: Those systems with pertinent positive or pertinent negative responses have been documented in the HPI. Constitutional: Negative for chills, fatigue and fever. HENT: Negative for congestion. Respiratory: Negative for chest tightness, shortness of breath and wheezing. Negative for cough Cardiovascular: Negative for chest pain and palpitations. Gastrointestinal: Positive for abdominal pain. Negative for abdominal distention, diarrhea, nausea and vomiting. Genitourinary: Negative for dysuria. Positive for increased urinary frequency Musculoskeletal: Negative for back pain, neck pain and neck stiffness. Skin: Negative for color change. Neurological: Negative for dizziness, speech difficulty, weakness and light- headedness. Psychiatric/Behavioral: Negative for agitation and confusion. Negative for anxiety ROS Other: All systems not noted in ROS Statement are negative. Past Medical History Past Medical History: Asthma, COPD Additional Past Medical History / Comment(s): chronic back pain History of Any Multi-Drug Resistant Organisms: None Reported Past Surgical History: Section, Cholecystectomy, Orthopedic Surgery Additional Past Surgical History / Comment(s): Gallbladder. x 6. Kidney stone removed. 3 surgries to right arm, hardware in place Additional Past Anesthesia/Blood Transfusion Reaction / Comment(s): Trouble w aking up after , did not wake up for 3 days Past Psychological History: Anxiety, Depression Smoking Status: Current every day smoker Past Alcohol Use History: None Reported Past Drug Use History: None Reported General Exam - General Exam Comments Initial Comments: Constitutional: Pt appears well-developed and well-nourished. No distress. Head: Normocephalic and atraumatic. Eyes: EOM are normal. Neck: Normal range of motion. Neck supple. Cardiovascular: Normal rate, regular rhythm, S1 normal, S2 normal and normal heart sounds. Exam reveals no gallop and no friction rub. No murmur heard. Pulmonary/Chest: Effort normal and breath sounds normal. No tachypnea and no bradypnea. No respiratory distress. No wheezes or rales noted. Abdominal: Soft. Bowel sounds are normal. Pt exhibits no shifting dullness, no distension, no pulsatile liver, no fluid wave, no abdominal bruit and no ascites. There is no rigidity, no rebound, no guarding, no tenderness at McBurney's point and negative Abdi's sign. There is mild lower abdominal tenderness Musculoskeletal: Normal range of motion. Neurological: Pt is alert and oriented to person, place, and time. No cranial nerve deficit. Skin: Skin is warm and dry. No rash noted. Pt is not diaphoretic. No erythema. No pallor. Psychiatric: Pt has a normal mood and affect. Pt behavior is normal. Thought content normal. Limitations: no limitations Course Vital Signs 04/22/18 04/22/18 04/22/18 17:00 20:16 21:08 Temperature 98.6 F 98.0 F 98.0 F Pulse Rate 80 69 66 Respiratory 18 18 16 Rate Blood Pressure 132/74 145/72 140/59 O2 Sat by Pulse 96 96 97 Oximetry Medical Decision Making - Medical Decision Making Laboratory studies showed that there was no significant leukocytosis, evidence of electrode derangements, acute kidney injury or urinary tract infection. CT of the abdomen was performed and showed moderate to severe right hydroureter nephrosis secondary to right distal ureteral obstructing calculi measuring 6 mm. Patient's pain was well controlled and because there is no fevers or chills or evidence of septic stone, it was thought that the patient could be safely discharged for close follow-up with urology. Patient was agreeable plan. - Lab Data Result diagrams: 04/22/18 17:47 04/22/18 17:47 Lab Results 04/22/18 04/22/18 04/22/18 Range/Units 17:47 17:47 17:47 WBC 6.1 (3.8-10.6) k/uL RBC 4.37 (3.80-5.40) m/uL Hgb 13.6 (11.4-16.0) gm/dL Hct 41.5 (34.0-46.0) % MCV 95.0 (80.0-100.0) fL MCH 31.1 (25.0-35.0) pg MCHC 32.7 (31.0-37.0) g/dL RDW 12.7 (11.5-15.5) % Plt Count 312 (150-450) k/uL Neutrophils % 37 % Lymphocytes % 48 % Monocytes % 7 % Eosinophils % 4 % Basophils % 0 % Neutrophils # 2.3 (1.3-7.7) k/uL Lymphocytes # 2.9 (1.0-4.8) k/uL Monocytes # 0.5 (0-1.0) k/uL Eosinophils # 0.3 (0-0.7) k/uL Basophils # 0.0 (0-0.2) k/uL Sodium 143 (137-145) mmol/L Potassium 4.3 (3.5-5.1) mmol/L Chloride 105 (98-107) mmol/L Carbon Dioxide 31 H (22-30) mmol/L Anion Gap 7 mmol/L BUN 24 H (7-17) mg/dL Creatinine 0.70 (0.52-1.04) mg/dL Est GFR (CKD-EPI)AfAm >90 (>60 ml/min/1.73 sqM) Est GFR (CKD-EPI)NonAf >90 (>60 ml/min/1.73 sqM) Glucose 126 H (74-99) mg/dL Calcium 10.6 H (8.4-10.2) mg/dL Total Bilirubin 0.3 (0.2-1.3) mg/dL AST 22 (14-36) U/L ALT 33 (9-52) U/L Alkaline Phosphatase 60 (38-126) U/L Total Protein 7.5 (6.3-8.2) g/dL Albumin 4.5 (3.5-5.0) g/dL Urine Color Yellow Urine Appearance Cloudy H (Clear) Urine pH 6.5 (5.0-8.0) Ur Specific Taylor 1.013 (1.001-1.035) Urine Protein Negative (Negative) Urine Glucose (UA) Negative (Negative) Urine Ketones Negative (Negative) Urine Blood Small H (Negative) Urine Nitrite Negative (Negative) Urine Bilirubin Negative (Negative) Urine Urobilinogen <2.0 (<2.0) mg/dL Ur Leukocyte Esterase Trace H (Negative) Urine RBC 26 H (0-5) /hpf Urine WBC 4 (0-5) /hpf Ur Squamous Epith Cells <1 (0-4) /hpf Amorphous Sediment Occasional H (None) /hpf Urine Bacteria Rare H (None) /hpf Hyaline Casts 1 (0-2) /lpf Urine Mucus Rare H (None) /hpf Disposition Clinical Impression: Hydroureteronephrosis, Ureteral calculus, right, Renal cyst, Acute abdomen Disposition: HOME SELF-CARE Condition: Good Instructions (If sedation given, give patient instructions): Kidney Stones (ED) Prescriptions: Ibuprofen [Motrin] 600 mg PO Q6HR PRN #20 tab PRN Reason: Pain Hydrocodone/Acetaminophen [[place] 7.5-325] 1 tab PO Q6HR PRN #12 tab PRN Reason: Pain Is patient prescribed a controlled substance at d/c from ED?: Yes Referrals: Gagan Chahal DO [Primary Care Provider] - 1-2 days Carlos Hernandez MD [STAFF PHYSICIAN] - 1-2 days Time of Disposition: 20:45
--- NOTE | 2018-04-22 18:39 | XR ---
EXAMINATION TYPE: XR KUB DATE OF EXAM: 04/22/2018 6:24 PM CLINICAL HISTORY: Abdominal pain TECHNIQUE: Single upright image of the abdomen is obtained. COMPARISON: 02/08/2011. FINDINGS: Scattered gas is seen in non-distended small bowel loops. Gas and fecal material is seen in non-distended colon. Hepatomegaly is seen. No abnormal calcifications within the abdomen or pelvis. Mild levoscoliosis of the thoracolumbar junction. The lung bases are clear and the osseous structures are intact. Cholecystectomy clips are present. IMPRESSION: Large colonic stool burden and a nonobstructive bowel gas pattern.
--- NOTE | 2018-04-22 19:04 | CT ---
EXAMINATION TYPE: CT abdomen pelvis w con DATE OF EXAM: 04/22/2018 HISTORY: Abdominal pain x3 days CT DLP: 798.7mGycm Automated Exposure Control for Dose Reduction was Utilized. CONTRAST: CT scan of the abdomen and pelvis is performed with IV Contrast, patient injected with 100 mL of Isov ue 300. COMPARISON: None. FINDINGS: LUNG BASES: No significant abnormality is appreciated. LIVER/GB: Too small to accurately characterize left hepatic hypoattenuated lesion is seen on image 16 measuring 7 mm. Gallbladder is surgically absent. PANCREAS: No significant abnormality is seen. SPLEEN: No significant abnormality is seen. ADRENALS: No significant abnormality is seen. KIDNEYS: There is moderate to severe right hydroureteronephrosis secondary tor a 6 mm distal right ur eteral obstructing calculus. Urinary bladder is decompressed and suboptimally evaluated. Right renal cyst measures 0.7 cm. Left renal cyst measures 1.6 cm. Punctate 2 mm nonobstructing left renal calcul us is present. BOWEL: Moderate amount retained colonic stool is present. No dilated large or small bowel. UTERUS/ADNEXA: No gross abnormality seen. LYMPH NODES: No greater than 1cm abdominal or pelvic lymph nodes are appreciated. OSSEOUS STRUCTURES: Grade 1 anterolisthesis of L4 on L5 is likely on a degenerative basis. IMPRESSION: Moderate to severe right hydroureteronephrosis secondary to a right distal ureteral obstr ucting calculus measuring 6 mm. Nonobstructing punctate left renal calculus is also noted.
[2018-04-22 20:18] VITALS: TEMP 98
[2018-04-22] MEDS ORDERED: HYDROcodone/APAP 7.5-325MG 1 EACH TAB PO ONE (20:42)
[2018-04-22 21:09] VITALS: BP 140/59; PULSE 66; RESP 16
== END 2018-04-22 21:10 | disposition home or self-care (01) ==
LOC: EC 16:47
DX: N13.6 Pyonephrosis (principal); N28.1 Cyst of kidney, acquired; N17.9 Acute kidney failure, unspecified; F41.9 Anxiety disorder, unspecified; F32.9 Major depressive disorder, single episode, unspecified; F17.200 Nicotine dependence, unspecified, uncomplicated; Z90.49 Acquired absence of other specified parts of digestive tract; Z87.442 Personal history of urinary calculi; Z79.899 Other long term (current) drug therapy; Z88.5 Allergy status to narcotic agent; Z88.1 Allergy status to other antibiotic agents
CPT/HCPCS: 36415; 80053; 85025; 81001; 74018; 74177; 99284; 96374; 96361 ×3; J1885; Q9967

== ENCOUNTER → 2018-04-25 | Outpatient (CLI) | payer MEDICARE | END | disposition home or self-care (01) | LOC: LABWHC1 12:33 | PROVIDERS: ATTEND Family Medicine | DX: E83.52 Hypercalcemia (principal) | CPT/HCPCS: 36415; 83970 ==

== ENCOUNTER → 2018-07-25 | Outpatient (CLI) | payer MEDICARE ==
--- NOTE | 2018-07-25 15:11 | XR ---
EXAMINATION TYPE: XR chest 2V DATE OF EXAM: 07/25/2018 COMPARISON: Chest x-ray July 25, 2017 HISTORY: COPD. TECHNIQUE: Frontal and lateral views of the chest are obtained. FINDINGS: There is chronic parenchymal change without suspicious focal air space opacity, pleural ef fusion, or pneumothorax seen. The cardiac silhouette size remains within normal limits with atherosc lerotic change in the aortic knob. The osseous structures are demineralized. Cholecystectomy clips are noted. IMPRESSION: No acute cardiopulmonary process. No significant change from prior.
[2018-07-25 15:22] LABS: INR 1.1 (<1.2); Prothrombin Time 11.2 sec (9.0-12.0)
[2018-07-25 15:23] LABS: Basophils % (A) 0 %; Eosinophils # (A) 0.1 k/uL (0-0.7); Eosinophils % (A) 2 %; HCT 38.3 % (34.0-46.0); HGB 12.5 gm/dL (11.4-16.0); Lymphocytes # (A) 2.4 k/uL (1.0-4.8); Lymphocytes % (A) 41 %; MCH 30.8 pg (25.0-35.0); MCHC 32.8 g/dL (31.0-37.0); MCV 94.1 fL (80.0-100.0); Mean Platelet Volume 7.2; Monocytes # (A) 0.3 k/uL (0-1.0); Monocytes % (A) 6 %; Neutrophils # (A) 2.9 k/uL (1.3-7.7); Neutrophils % (A) 49 %; Platelet Count 300 k/uL (150-450); RBC 4.07 m/uL (3.80-5.40); RDW 13.7 % (11.5-15.5); WBC 5.9 k/uL (3.8-10.6)
[2018-07-25 15:43] LABS: ALT 23 U/L (9-52); AST 21 U/L (14-36); African American GFR (CKD) >90 (>60 ml/min/1.73 sqM); Albumin 4.6 g/dL (3.5-5.0); Alkaline Phosphatase 62 U/L (38-126); Anion Gap 10 mmol/L; Blood Urea Nitrogen 15 mg/dL (7-17); Calcium 9.7 mg/dL (8.4-10.2); Carbon Dioxide 28 mmol/L (22-30); Chloride 103 mmol/L (98-107); Glucose 149 mg/dL (74-99); Sodium 141 mmol/L (137-145); Total Bilirubin 0.3 mg/dL (0.2-1.3); Total Protein 7.3 g/dL (6.3-8.2)
[2018-07-25 15:59] LABS: Appearance,Urine Clear (Clear); Bacteria,Urine Rare /hpf; Bilirubin,Urine Negative (Negative); Blood,Urine Trace (Negative); Color,Urine Yellow; Glucose,Urine (UA) Negative (Negative); Ketones,Urine Negative (Negative); Leukocyte Esterase,Urine Moderate (Negative); Mucus,Urine Occasional /hpf; Nitrite,Urine Negative (Negative); Protein,Urine Trace (Negative); RBC,Urine 3 /hpf (0-5); Specific Gravity,Urine 1.019 (1.001-1.035); Squamous Epithelial Cell,Urine 1 /hpf (0-4); Urobilinogen,Urine <2.0 mg/dL (<2.0); WBC,Urine 6 /hpf (0-5)
== END | disposition home or self-care (01) ==
LOC: LABPAT 14:21
PROVIDERS: ATTEND Family Medicine
DX: Z01.812 Encounter for preprocedural laboratory examination (principal); I10 Essential (primary) hypertension; M50.30 Other cervical disc degeneration, unspecified cervical region; J44.9 Chronic obstructive pulmonary disease, unspecified
CPT/HCPCS: 36415; 71046; 80053; 81001; 82306; 85025; 85610

== ENCOUNTER → 2018-10-13 | Outpatient (CLI) | payer MEDICARE ==
--- NOTE | 2018-10-13 15:42 | XR ---
EXAMINATION TYPE: XR chest 2V DATE OF EXAM: 10/13/2018 COMPARISON: 07/25/2017 INDICATION: [id number] TECHNIQUE: Frontal and lateral views of the chest are obtained. FINDINGS: The heart size is normal. The pulmonary vasculature is normal. The lungs are clear. No significant interval change is evident. IMPRESSION: 1. No acute pulmonary process.
[2018-10-13 15:46] LABS: Basophils % (A) 0 %; Eosinophils # (A) 0.2 k/uL (0-0.7); Eosinophils % (A) 4 %; HCT 40.5 % (34.0-46.0); HGB 13.1 gm/dL (11.4-16.0); Lymphocytes # (A) 3.3 k/uL (1.0-4.8); Lymphocytes % (A) 59 %; MCH 31.2 pg (25.0-35.0); MCHC 32.4 g/dL (31.0-37.0); MCV 96.5 fL (80.0-100.0); Mean Platelet Volume 6.5; Monocytes # (A) 0.4 k/uL (0-1.0); Monocytes % (A) 7 %; Neutrophils # (A) 1.5 k/uL (1.3-7.7); Neutrophils % (A) 26 %; Platelet Count 288 k/uL (150-450); RDW 13.2 % (11.5-15.5); WBC 5.6 k/uL (3.8-10.6)
[2018-10-13 15:49] LABS: Appearance,Urine Clear (Clear); Bilirubin,Urine Negative (Negative); Blood,Urine Negative (Negative); Color,Urine Yellow; Glucose,Urine (UA) Negative (Negative); Ketones,Urine Negative (Negative); Leukocyte Esterase,Urine Negative (Negative); Nitrite,Urine Negative (Negative); PH, Urine 6.5 (5.0-8.0); Protein,Urine Negative (Negative); Specific Gravity,Urine 1.015 (1.001-1.035); Urobilinogen,Urine <2.0 mg/dL (<2.0)
[2018-10-13 15:54] LABS: INR 0.9 (<1.2); Partial Thromboplastin Time 24.6 sec (22.0-30.0); Prothrombin Time 9.9 sec (9.0-12.0)
[2018-10-13 16:01] LABS: African American GFR (CKD) >90 (>60 ml/min/1.73 sqM); Anion Gap 8 mmol/L; Blood Urea Nitrogen 16 mg/dL (7-17); Calcium 9.8 mg/dL (8.4-10.2); Carbon Dioxide 31 mmol/L (22-30); Chloride 101 mmol/L (98-107); Glucose 109 mg/dL (74-99); Potassium 4.2 mmol/L (3.5-5.1); Sodium 140 mmol/L (137-145)
== END | disposition home or self-care (01) ==
LOC: LABPAT 14:57
PROVIDERS: ATTEND Orthopaedic Surgery Orthopaedic Surgery of the Spine
DX: Z01.818 Encounter for other preprocedural examination (principal); Z01.812 Encounter for preprocedural laboratory examination; M50.222 Other cervical disc displacement at C5-C6 level
CPT/HCPCS: 36415; 71046; 80048; 81003; 85025; 85610; 85730

== ENCOUNTER 2018-10-23 11:12 | Day surgery (SDC) | payer MEDICARE, OTHER ==
[~2018-10-23 11:12] MED LIST: BACITRACIN 50,000 UNIT, POLYMYXIN B 500,000 UNIT in SODIUM CHLORIDE 0.9% IRRIGATIO 1,00... IRRIGATION ONE; DEXAMETHASONE SOD PHOSPHATE 10 MG/ML 1 ML VIAL IV ONE; MIDAZOLAM 2 MG/2 ML VIAL IV PRN; ONDANSETRON 4 MG/2 ML VIAL IVP ONE; SCOPOLAMINE 1.5MG/72HR PATCH TRANSDERM ONE
[2018-10-23] MEDS ORDERED: LIDOCAINE 1% 20 ML VIAL (10MG/ML) FOR IV START INTRADERMA ONE (11:40)
[2018-10-23] MEDS: LACTATED RINGERS 1,000 ML IV SCH (11:40)
[2018-10-23] MEDS ORDERED: PROPOFOL 10 MG/ML 20 ML VIAL IV ONE (12:13)
[2018-10-23] MEDS ORDERED: SUCCINYLCHOLINE CHLORIDE 100 MG/5 ML SYR IV ONE (12:13)
[2018-10-23] MEDS ORDERED: KETAMINE 10 MG/ML 20 ML VIAL ONE (12:13)
[2018-10-23] MEDS ORDERED: MIDAZOLAM 2 MG/2 ML VIAL ONE (12:13)
[2018-10-23] MEDS ORDERED: fentaNYL (PF) 50 MCG/ML 2 ML AMP ONE (12:13)
[2018-10-23] MEDS ORDERED: LIDOCAINE 1% INJ 10MG/ML (20 ML MDV) ONE (12:13)
[2018-10-23] MEDS ORDERED: NEOSTIGMINE 1 MG/ML 10 ML VIAL ONE (12:13)
[2018-10-23] MEDS ORDERED: ROCURONIUM BROMIDE 10 MG/ML 10 ML VIAL IV ONE (12:13)
[2018-10-23] MEDS ORDERED: GLYCOPYRROLATE 0.2 MG/ML 2 ML VIAL ONE (12:13)
[2018-10-23] MEDS ORDERED: ePHEDrine SULFATE/0.9% NACL/PF 50 MG/5 ML SYRINGE IV ONE (12:13)
[2018-10-23] MEDS ORDERED: GELATIN SPONGE,ABSORB (LARGE) 1 EACH SPONGE MISCELLANE ONE (12:49)
[2018-10-23] MEDS ORDERED: THROMBIN (BOVINE) 5,000 UNIT VIAL TOPICAL ONE (12:49)
[2018-10-23] MEDS ORDERED: BUPIVACAINE-EPI 0.5%-1:200,000 10 ML VIAL SQ ONE (12:49)
--- NOTE | 2018-10-23 13:41 | XR ---
EXAMINATION TYPE: XR cervical spine 1V DATE OF EXAM: 10/23/2018 CLINICAL HISTORY: pain TECHNIQUE: Crosstable Lateral portable view of the cervical spine is submitted. COMPARISON: None. FINDINGS: Localizer is noted anteriorly at the C5-6 level. IMPRESSION: Intraoperative localization.
[2018-10-23] MEDS ORDERED: BENZOCAINE/MENTHOL LOZENG 1 EACH LOZENGE MUCOUS MEM PRN (14:16)
[2018-10-23] MEDS ORDERED: HYDROcodone/APAP 5-325MG 1 EACH TAB PO PRN (14:16)
[2018-10-23] MEDS ORDERED: ONDANSETRON 4 MG/2 ML VIAL IVP PRN (14:16)
[2018-10-23] MEDS ORDERED: MAGNESIUM HYDROXIDE 2,400 MG/10 ML CUP PO PRN (14:16)
[2018-10-23] MEDS: fentaNYL (PF) 50 MCG/ML 2 ML AMP IV PRN ×4 (14:28→16:22)
--- NOTE | 2018-10-23 14:38 | P.OP ---
Date of Procedure: 10/23/18 Preoperative Diagnosis: Cervical stenosis C5 6 C6 7, degenerative disc disease C5 6 C6 7, cervical radiculopathy, neck pain, upper extremity weakness Postoperative Diagnosis: Same Anesthesia: GETA Pathology: none sent Condition: stable Disposition: PACU Description of Procedure: BRIEF OPERATIVE NOTE Preoperative Diagnosis:Cervical stenosis C5 6 C6 7, degenerative disc disease C5 6 C6 7, cervical radiculopathy, neck pain, upper extremity weakness Postoperative Diagnosis:Cervical stenosis C5 6 C6 7, degenerative disc disease C5 6 C6 7, cervical radiculopathy, neck pain, upper extremity weakness Procedure: Anterior cervical decompression and fusion C5 6 C6 7 Placement of interbody graft C5 6 C6 7 Application of anterior cervical plate C5 6 and 7 Surgeon: Dr. Norman Consultant Education: Jonathan FLOYD who is present throughout the entire the case persistence during positioning, dissection, exposure, visualization, and all crucial elements of the case as well as closure. Anesthesia: General anesthesia per Dr. Patricia Estimated blood loss: Less than 50 mL Complications: None apparent Components implanted: K to him Bozrah anterior cervical plate system with ViKos interbody allograft bone graft and 1 mL of DBX bone putty supplement the bone graft Disposition: To recovery room in good stable condition. OPERATIVE INDICATIONS The patient has had long-standing issues in their neck and upper extremities. She is found have significant disc degeneration with disc herniation at C5 6 C6 7 causing cervical stenosis which correlated well with her neck and upper extremity symptoms. She is having worsening symptoms despite aggressive conservative care. The patient has been through conservative treatment. We discussed various treatment options including surgery, and the patient wishes to proceed with surgery We discussed the risk, patient's alternatives and benefits of surgery including but not limited to, risk of bleeding risk of infection, risk of need for further surgery, risk of decreased, loss of motion, muscle function, malunion nonunion, hardware failure, nerve damage, paralysis, heart attack, and . OPERATIVE SUMMARY After discussing all the risks, patient alternatives and benefits at length, the patient elected to proceed with surgical intervention, signed informed consent, and presented for their procedure. The patient was seen and examined in the preoperative holding area and the surgical site was marked. The patient was given antibiotics and brought to the operating room. The patient was positioned on the operating room table in a supine position being careful to pad any bony prominences and pressure points. The patient was sedated and intubated by anesthesia in standard fashion. Once the airway and C- spine were stabilized the patient's arms were padded and tucked at her side, with her shoulders gently taped. The head was placed in a donut pad with the neck in good neutral alignment and position. We were careful to maintain the patient's cervical spine and good neutral alignment and position throughout. The patient was prepped and draped in a normal standard fashion. An appropriate timeout and keystone protocol performed. We were able to proceed with the surgery. The local wound area was infiltrated with local anesthetic. An incision was made transversely approximately 2-1/2 cm over the appropriate levels at C5 6 level. Dissection was taken down subcutaneously to the level of the platysma which was split in line with its fibers. Dissection was taken with a carotid approach, with the trachea and esophagus medial and the carotid sheath laterally. We dissected down to the anterior surface of the vertebral bodies at C5 6 and 7. Intraoperative x-ray was taken which showed a marker at the appropriate level at C5 6. With the appropriate level positively confirmed, we were able to proceed with discectomy at the appropriate levels. Starting at C5 6 and then moving to C6 7, All of the operative levels were exposed appropriately. The patient had all their twitches back, and there was no evidence of recurrent laryngeal issue. The wound was copiously irrigated and suctioned dry as had been done periodically throughout the case. At the appropriate level/levels, I established an annulotomy with an 11 blade scalpel. A discectomy was performed with a combination of pituitary rongeurs, curettes, a high-speed bur, and Kerrison rongeurs. Note was made of significant disc protrusion and herniation with central and bilateral foraminal stenosis. This was remedied with the decompression. The posterior longitudinal ligament was taken down as were any posterior osteophytes. This gave good central and bilateral foraminal decompression. There is no evidence of any dural tear or leak. The endplates were prepared with a high-speed bur. With the endplates in good parallel position, I was able to size for the appropriate size interbody gr aft. The wound was irrigated and suctioned dry the graft was prepared and malleted into position. It had good alignment and position with the anterior surface flush with the anterior surface of the vertebral bodies. This was done similarly the appropriate levels first at C5 6 C6 7. With the grafts intact, I was able to measure and contour and appropriate sized plate. The plate was positioned at the midline over the appropriate levels. Screw holes were established with a hand drill and drill guide. Screws were placed in good alignment and position with excellent bony purchase. They were seated under the locking device. The construct was checked and found to be stable. Intraoperative x-ray was taken which showed good alignment and position of the implants at the appropriate levels. There was no evidence of any dural tear or leak. Good hemostasis was maintained. The wound was copiously irrigated and suctioned dry as had been done periodically throughout the case. The platysma was closed with absorbable suture. The subcutaneous tissue was closed. The subcuticular tissue was closed with absorbable suture. The wound was cleaned and dried and dressed appropriately. A soft cervical collar was placed appropriately. The patient was woken up by anesthesia, extubated, transferred back gently to their hospital bed and brought to the recovery room in good stable condition. The patient will be admitted to the hospital for appropriate postoperative care, medical management and monitoring. We will continue to follow them closely about the postoperative course.
[2018-10-23] MEDS: MIDAZOLAM (PF) 2 MG/2 ML VIAL IV ONE ×2 (14:46→15:12)
--- NOTE | 2018-10-23 15:12 | XR ---
EXAMINATION TYPE: XR cervical spine 1V DATE OF EXAM: 10/23/2018 CLINICAL HISTORY: Postoperative change TECHNIQUE: Crosstable Lateral portable view of the cervical spine is submitted. COMPARISON: None. FINDINGS: Postsurgical changes of ACDF at C5-6 and C6-7 with appropriate postoperative alignment. IMPRESSION: Appropriate postoperative alignment.
[2018-10-23] MEDS: HYDROmorphone 0.5 MG/0.5 ML SYRINGE IVP PRN ×2 (18:12→22:19)
[2018-10-23] MEDS: traMADol 50 MG TAB PO PRN (18:26)
[2018-10-23] MEDS: HYDROcodone/APAP 7.5-325MG 1 EACH TAB PO PRN (18:26)
[2018-10-23] MEDS: SODIUM CHLORIDE 0.9% 1,000 ML IV SCH (18:29)
[2018-10-23 19:49] VITALS: BMI 27.7
[2018-10-23] MEDS ORDERED: MELATONIN 1 MG TAB PO PRN (20:12)
[2018-10-23] MEDS ORDERED: amLODIPine 5 MG TAB PO SCH (21:00)
[2018-10-23] MEDS: PREGABALIN 50 MG CAP PO SCH (21:51)
[2018-10-24] MEDS: HYDROcodone/APAP 7.5-325MG 1 EACH TAB PO PRN ×4 (02:36→14:09)
[2018-10-24] MEDS: SODIUM CHLORIDE 0.9% 1,000 ML IV SCH (02:37)
[2018-10-24] MEDS: traMADol 50 MG TAB PO PRN (04:40)
[2018-10-24] MEDS: LACTATED RINGERS 1,000 ML IV SCH (06:00)
[2018-10-24] MEDS: PREGABALIN 50 MG CAP PO SCH (08:08)
[2018-10-24] MEDS ORDERED: FLUoxetine HCL 20 MG CAP PO SCH (09:00)
[2018-10-24] MEDS ORDERED: FENOFIBRATE 160 MG TAB PO SCH (09:00)
[2018-10-24] MEDS ORDERED: SENNOSIDES-DOCUSATE SODIUM 1 EACH TAB PO SCH ×2 (09:00)
--- NOTE | 2018-10-24 12:44 | P.DS ---
Providers Date of admission: 10/23/18 11:12 Expected date of discharge: 10/24/18 Attending physician: Tam Norman Primary care physician: Gagan Chahal - Discharge Diagnosis(es) (1) Cervical stenosis of spinal canal Current Visit: Yes Status: Acute (2) Degenerative cervical disc Current Visit: Yes Status: Acute (3) Cervicalgia Current Visit: Yes Status: Acute (4) Radiculopathy affecting upper extremity Current Visit: Yes Status: Acute (5) Upper extremity weakness Current Visit: Yes Status: Acute (6) Hypertension Current Visit: Yes Status: Acute (7) Hyperlipidemia Current Visit: Yes Status: Acute (8) Hypothyroidism Current Visit: Yes Status: Acute (9) History of hepatitis C Current Visit: Yes Status: Acute (10) COPD (chronic obstructive pulmonary disease) Current Visit: Yes Status: Acute (11) History of kidney disease Current Visit: Yes Status: Acute (12) Unsteady gait Current Visit: Yes Status: Acute Hospital Course: This is a pleasant 63-year-old female who presented with C5-6 and C6-7 degenerative disc disease and cervical canal stenosis with cervical pain and upper extremity radiculopathy with weakness who failed outpatient conservative therapy. She was admitted for a C5-6 and C6-7 anterior cervical decompression and fusion. The patient tolerated the procedure well and did well postoperatively. She is not currently experiencing any upper extremity radiculopathy bilaterally. She does have ongoing cervical pain postoperatively. Her pain has been adequately controlled with [place] 7.5 mg/325 mg 1 tab every 4 hours as needed for pain. She has been able to take this medicine without difficulty. She's been able to get out of bed and has been able to ambulate to the restroom without difficulty. She continues to wear her soft cervical collar for comfort and support. Patient states she has had some itching from the surgical dressing. She states she is able to use Tegaderm dressing without difficulty. She does feel she would be ready for discharge home today. Condition on day of discharge stable. Patient will be discharged home. Patient was cleared preoperatively for surgery by Dr. Chahal. Patient currently denies any nausea, vomiting, fever, or chills. Patient is eating and voiding freely without difficulty. Patient may shower Tegaderm dressing intact. Patient may remove Tegaderm dressing in 3 days and shower without a dressing at that time. Patient should keep Steri-Strips intact and allow them to fall off naturally. Patient should refrain from driving until at least after their first follow-up appointment in the office. Patient should avoid excessive neck flexion, extension, rotation, and lateral sidebending; no overhead lifting; no lifting greater than 10 pounds. MAPS has been reviewed yesterday, 10/23/2018. An "Opiod Start Talking" Form has been signed by the patient and Dr. Alexander Norman and placed in the patient's chart. A prescription has been written for [place] 7.5 mg/325 mg take 1 tab every 4-6 hours as needed for pain, dispensed #28. This prescription is been sent to the pharmacy. Patient should avoid anti-inflammatories over the next 6 weeks postoperatively. We discussed that she should discontinue Ultram as previously prescribed in the outpatient setting. Patient does have a significant medical history which includes hypertension, hyperlipidemia, hypothyroid-ism, hepatitis C, COPD, kidney disease, and unsteady gait. Physical Exam on day of discharge: Patient is awake, alert, and oriented 3 Vital signs stable Good chest excursion with deep inspiration and expiration Abdomen soft nontender No signs or symptoms of DVT; no calf pain Full range of motion of the cervical spine with adequate flexion, extension, and bilateral rotation Nurses Aide strength, thumb strength, interosseous strength, biceps strength, triceps strength, and shoulder strength positive sustained bilaterally Soft cervical collar intact Dressing is removed during physical examination and replaced with Tegaderm dressing and non-stick Telfa intact Incision is clean, dry, and intact; no erythema, purulence, or signs of infection Mild generalized bruising over the anterior sternum Procedures: C5-6 and C6-7 anterior cervical decompression and fusion Patient Condition at Discharge: Stable Plan - Discharge Summary Discharge Rx Participant: No New Discharge Prescriptions: New HYDROcodone/APAP 7.5-325MG [[place] 7.5-325] 1 tab PO Q4-6H PRN #28 tab PRN Reason: Pain No Action traMADol HCL [Ultram] 100 mg PO Q6HR PRN PRN Reason: Pain Pregabalin [Lyrica] 100 mg PO BID amLODIPine BESYLATE 5 mg PO HS Fenofibrate Nanocrystallized [Fenofibrate] 145 mg PO DAILY FLUoxetine HCL [PROzac] 60 mg PO QAM Brexpiprazole [Rexulti] 0.5 mg PO HS Hydrocodone/Acetaminophen [Hydrocodone-Acetamin 7.5-300] 1 tab PO Q4HR PRN PRN Reason: Pain Discharge Medication List Fenofibrate Nanocrystallized [Fenofibrate] 145 mg PO DAILY 04/03/18 [History] Pregabalin [Lyrica] 100 mg PO BID 04/03/18 [History] amLODIPine BESYLATE 5 mg PO HS 04/03/18 [History] traMADol HCL [Ultram] 100 mg PO Q6HR PRN 04/03/18 [History] Brexpiprazole [Rexulti] 0.5 mg PO HS 10/13/18 [History] FLUoxetine HCL [PROzac] 60 mg PO QAM 10/13/18 [History] HYDROcodone/APAP 7.5-325MG [[place] 7.5-325] 1 tab PO Q4-6H PRN #28 tab 10/23/18 [Rx] Hydrocodone/Acetaminophen [Hydrocodone-Acetamin 7.5-300] 1 tab PO Q4HR PRN 10/23/18 [History] Follow up Appointment(s)/Referral(s): Tam Norman DO [Doctor of Osteopathic Medicine] - 11/03/18 11:00 am Activity/Diet/Wound Care/Special Instructions: Keep site clean. May shower with waterproof Tegaderm intact. Do not soak in a tub. After 72 hours postoperatively, patient May remove dressing and then may shower with area uncovered. Leave Steri-Strips intact and allow them to fray off on their own. May ambulate as tolerated. Avoid heavy or rigorous activity. No repetitive bending twisting or lifting. No overhead work. Discharge Disposition: HOME SELF-CARE
[2018-10-24 14:19] VITALS: BP 122/65; PULSE 89; RESP 16; TEMP 98.2
== END 2018-10-24 16:00 | disposition home or self-care (01) ==
LOC: UNDOADMIN 11:12 → 2ORMAIN 11:12 → OR 11:12 → EDSTATUS 12:00 → 2ORMAIN 17:14 → 4SSUR 17:14 → UNDODISIN 10-24 16:00 → OR 10-24 16:00
PROVIDERS: ATTEND Orthopaedic Surgery Orthopaedic Surgery of the Spine
DX: M48.02 Spinal stenosis, cervical region (principal); M50.122 Cervical disc disorder at C5-C6 level with radiculopathy; I10 Essential (primary) hypertension; E78.5 Hyperlipidemia, unspecified; E03.9 Hypothyroidism, unspecified; I12.9 Hypertensive chronic kidney disease with stage 1 through stage 4 chronic kidney disease, or unspecified chronic kidney disease; N18.9 Chronic kidney disease, unspecified; F17.210 Nicotine dependence, cigarettes, uncomplicated; R63.5 Abnormal weight gain; Z68.29 Body mass index [BMI] 29.0-29.9, adult; H91.90 Unspecified hearing loss, unspecified ear; R01.1 Cardiac murmur, unspecified; R06.01 Orthopnea; Z97.3 Presence of spectacles and contact lenses; J44.9 Chronic obstructive pulmonary disease, unspecified; R26.9 Unspecified abnormalities of gait and mobility; G43.909 Migraine, unspecified, not intractable, without status migrainosus; Z86.19 Personal history of other infectious and parasitic diseases; Z87.442 Personal history of urinary calculi; Z82.49 Family history of ischemic heart disease and other diseases of the circulatory system; Z79.891 Long term (current) use of opiate analgesic; Z79.51 Long term (current) use of inhaled steroids; Z79.899 Other long term (current) drug therapy; Z88.1 Allergy status to other antibiotic agents; Z88.8 Allergy status to other drugs, medicaments and biological substances; Z88.5 Allergy status to narcotic agent
CPT/HCPCS: 72020; 22551; 22552; 22845; 20931; C1713 ×2; C1762; J2250 ×2; J2710; J0690 ×2; J2405; J2001; J3010; J0330; J2704; J1170; 86850; 86900; 86901